=== PATIENT | female | born 1930 | race Caucasian/White ===

== ENCOUNTER 2018-02-17 01:46 | Inpatient (IN) | payer OTHER, MEDICARE ==
[~2018-02-17] VITALS: Ht 170.2 cm; Wt 68.5 kg
[2018-02-17 02:00] VITALS: BP_SYST 141
[2018-02-17] MEDS ORDERED: PRO20 PO (02:29)
[2018-02-17] MEDS ORDERED: FENO145T PO (02:29)
[2018-02-17] MEDS ORDERED: PRO40 PO (02:30)
[2018-02-17] MEDS ORDERED: IPRATROPIUM BROM 0.5 MG/2.5 ML VIAL.NEB (ATROVENT) IH ONE (02:30)
[2018-02-17] MEDS ORDERED: KETOROLAC TROMETHAMINE 60 MG/2 ML VIAL IM ONE (02:30)
[2018-02-17] MEDS ORDERED: ALBUTEROL SULFATE 0.083% 2.5 MG/3 ML VIAL.NEB IH ONE (02:30)
[2018-02-17] MEDS ORDERED: LORA-258 PO (02:31)
[2018-02-17] MEDS ORDERED: METO25TA3 PO (02:33)
[2018-02-17] MEDS ORDERED: ELUX75TA PO (02:34)
[2018-02-17] MEDS ORDERED: DONE5TAB33 PO (02:34)
[2018-02-17] MEDS ORDERED: HYDR-3917 PO (02:38)
[2018-02-17] MEDS ORDERED: LAM25 PO (02:39)
[2018-02-17] MEDS ORDERED: MEMA5TAB PO ×2 (02:40→02:41)
[2018-02-17] MEDS ORDERED: ASPI-1155 PO (03:00)
[2018-02-17] MEDS ORDERED: MAGN250T10 PO (03:03)
[2018-02-17] MEDS ORDERED: CA C-2 PO (03:04)
[2018-02-17] MEDS ORDERED: IBUP-2101 PO (03:06)
[2018-02-17] MEDS ORDERED: UBID50TA3 PO (03:08)
[2018-02-17] MEDS ORDERED: B CO1TAB7 PO (03:09)
[2018-02-17] MEDS ORDERED: cefTRIAXone 1 GM IVPB PREMIX 50 ML IV ONE (04:15)
[2018-02-17 04:55] LABS: ANION GAP 7 (5-15); CALCIUM 9.5 mg/dL (8.4-11.0); CHLORIDE 102 mmol/L (98-107); CREATININE 0.89 mg/dL (0.55-1.30); GLUCOSE 113 mg/dL (70-99); POTASSIUM 3.8 mmol/L (3.5-5.1); SODIUM SERUM 139 mmol/L (136-145); UREA NITROGEN, BLOOD 22 mg/dL (8-21)
[2018-02-17 04:59] LABS: HEMATOCRIT 35.1 % (36-48); HEMOGLOBIN 11.8 g/dL (12.0-16.0); MEAN CORPUSCULAR HEMOGLOBIN 31 pg (27-31); MEAN CORPUSCULAR HGB CONC 34 % (32-36); MEAN CORPUSCULAR VOLUME 93 fL (79.0-98.0); PLATELET COUNT (AUTO) 320 K/uL (130-430); RED BLOOD CELL COUNT(AUTO) 3.79 MIL/uL (4.2-6.2); RED CELL DISTRIBUTION WIDTH 13.1 % (9.0-15.0); WHITE BLOOD COUNT (AUTO) 14.8 K/uL (4.8-10.8)
[2018-02-17 05:00] LABS: ALANINE AMINOTRANSFERASE 32 U/L (12-78); ALBUMIN 3.3 g/dL (3.4-4.8); ASPARTATE AMINOTRANSFERASE 34 U/L (10-37); PROTHROMBIN TIME 10.5 SECS (9.5-12.5); TOTAL BILIRUBIN 0.5 mg/dL (0.0-1.0)
[2018-02-17 05:42] LABS: BAND % (MANUAL) 2 % (0-6); BASOPHILS % (MANUAL) 0 % (0-2); EOSINOPHILS % (MANUAL) 3 % (0-7); LYMPHOCYTES % (MANUAL) 15 % (20-46); MONOCYTES % (MANUAL) 8 % (0-11)
[2018-02-17 05:46] LABS: BILIRUBIN,URINE NEGATIVE (NEGATIVE); BLOOD, URINE 1+ (NEGATIVE); CLARITY/URINE CLEAR (CLEAR); COLOR,URINE YELLOW (YELLOW); GLUCOSE,URINE NEGATIVE (NEGATIVE); KETONES,URINE NEGATIVE (NEGATIVE); LEUKOCYTE ESTERASE ,URINE NEGATIVE (NEGATIVE); NITRITE, URINE NEGATIVE (NEGATIVE); PROTEIN URINE NEGATIVE (NEGATIVE); UROBILINOGEN,URINE 0.2 (0.2-1.0)
[2018-02-17 05:51] LABS: BACTERIA,URINE FEW /HPF (None Seen); MUCUS,URINE None Seen /LPF (None Seen); WBC,URINE 0-3 /HPF (0-3)
[2018-02-17 06:28] VITALS: BP_SYST 145
[2018-02-17] MEDS: IPRATROPIUM/ALBUTEROL SULFATE 3 ML AMPUL.NEB INH SCH ×5 (07:00→22:58)
[2018-02-17 07:29] VITALS: BP_SYST 145
[2018-02-17 11:59] VITALS: BP_SYST 135
[2018-02-17 15:00] VITALS: BP_SYST 132
[2018-02-17] MEDS ORDERED: [UNRECOGNIZED DRUG - OTHER] PO PRN (17:15)
[2018-02-17] MEDS ORDERED: HYDROCODONE PO PRN (17:15)
[2018-02-17] MEDS ORDERED: ACETAMINOPHEN PO PRN (17:15)
[2018-02-17] MEDS ORDERED: FLUoxetine HCL 20 MG CAPSULE (PROzac) PO ONE (17:30)
[2018-02-17] MEDS ORDERED: ASPIRIN 81 MG TAB.CHEW PO ONE (17:30)
[2018-02-17] MEDS ORDERED: PANTOPRAZOLE SODIUM 40 MG TAB PO ONE (17:30)
[2018-02-17] MEDS ORDERED: METOPROLOL SUCCINATE 25 MG TAB.SR.24H (TOPROL XL) PO ONE (17:45)
[2018-02-17] MEDS ORDERED: D5LR 500 ML IV ONE (18:15)
[2018-02-17] MEDS: LORazepam 1 MG TABLET PO SCH (18:36)
[2018-02-17] MEDS: MEMANTINE HCL 5 MG TABLET PO SCH (18:38)
[2018-02-17] MEDS: VITAMIN B COMPLEX WITH C TAB/CAP PO SCH (18:38)
[2018-02-17 19:51] VITALS: BP_SYST 156
[2018-02-17] MEDS ORDERED: ELUXADOLINE 75 MG PO SCH (21:00)
[2018-02-17] MEDS: LamoTRIgine 25 MG TABLET PO SCH (22:17)
[2018-02-17] MEDS: DONEPEZIL HCL 5 MG TABLET (ARICEPT) PO SCH (22:17)
[2018-02-18 00:47] VITALS: BP_SYST 164
[2018-02-18] MEDS: IPRATROPIUM/ALBUTEROL SULFATE 3 ML AMPUL.NEB INH SCH ×6 (03:00→23:36)
[2018-02-18 08:21] LABS: BASOPHILS % (AUTO) 0.4 % (0.0-2.0); EOSINOPHILS # (AUTO) 0.3 K/uL (0.0-0.4); EOSINOPHILS % (AUTO) 2.5 % (0.0-4.0); HEMATOCRIT 32.7 % (36-48); HEMOGLOBIN 10.6 g/dL (12.0-16.0); LYMPHOCYTES # (AUTO) 1.3 K/uL (1.0-5.5); LYMPHOCYTES % (AUTO) 12.9 % (20.5-51.5); MEAN CORPUSCULAR HEMOGLOBIN 30 pg (27-31); MEAN CORPUSCULAR HGB CONC 33 % (32-36); MEAN CORPUSCULAR VOLUME 92 fL (79.0-98.0); MONOCYTES # (AUTO) 0.9 K/uL (0.0-1.0); MONOCYTES % (AUTO) 8.9 % (1.7-9.3); NEUTROPHILS # (AUTO) 7.6 K/uL (1.8-7.7); NEUTROPHILS % (AUTO) 75.3 % (40.0-70.0); PLATELET COUNT (AUTO) 275 K/uL (130-430); RED BLOOD CELL COUNT(AUTO) 3.56 MIL/uL (4.2-6.2); RED CELL DISTRIBUTION WIDTH 12.9 % (9.0-15.0); WHITE BLOOD COUNT (AUTO) 10.1 K/uL (4.8-10.8)
[2018-02-18] MEDS: ASPIRIN 81 MG TAB.CHEW PO SCH (08:22)
[2018-02-18] MEDS: FLUoxetine HCL 20 MG CAPSULE (PROzac) PO SCH (08:22)
[2018-02-18] MEDS: PANTOPRAZOLE SODIUM 40 MG TAB PO SCH (08:22)
[2018-02-18] MEDS: MAGNESIUM OXIDE 400 MG TABLET PO SCH (08:22)
[2018-02-18] MEDS: CALCIUM CARBONATE/VITAMIN D3 1 TAB TABLET PO SCH (08:23)
[2018-02-18] MEDS: LamoTRIgine 25 MG TABLET PO SCH ×2 (08:23→20:37)
[2018-02-18] MEDS: VITAMIN B COMPLEX WITH C TAB/CAP PO SCH (08:23)
[2018-02-18] MEDS: METOPROLOL SUCCINATE 25 MG TAB.SR.24H (TOPROL XL) PO SCH (08:23)
[2018-02-18] MEDS: FENOFIBRATE NANOCRYSTALLIZED 48 MG TABLET (TRICOR) PO SCH (08:23)
[2018-02-18 08:24] LABS: ANION GAP 8 (5-15); CALCIUM 8.8 mg/dL (8.4-11.0); CHLORIDE 101 mmol/L (98-107); CREATININE 0.67 mg/dL (0.55-1.30); GLUCOSE 112 mg/dL (70-99); POTASSIUM 3.7 mmol/L (3.5-5.1); SODIUM SERUM 138 mmol/L (136-145); UREA NITROGEN, BLOOD 18 mg/dL (8-21)
[2018-02-18 08:30] VITALS: BP_SYST 146
[2018-02-18 12:00] VITALS: BP_SYST 140
[2018-02-18 16:12] VITALS: BP_SYST 146
[2018-02-18] MEDS ORDERED: THIAMINE HCL 100 MG in NS 50 ML IV ONE (17:30)
[2018-02-18] MEDS ORDERED: LORazepam 2 MG/ML VIAL IVP ONE (17:30)
[2018-02-18] MEDS ORDERED: ONDANSETRON HCL 4 MG/2 ML VIAL IVP PRN (17:30)
[2018-02-18] MEDS: MEMANTINE HCL 5 MG TABLET PO SCH (17:41)
[2018-02-18] MEDS: LORazepam 1 MG TABLET PO SCH (17:41)
[2018-02-18] MEDS: MORPHINE 4 MG/ML INJ. SYRINGE IVP PRN (17:42)
[2018-02-18 20:10] VITALS: BP_SYST 132
[2018-02-18] MEDS: DONEPEZIL HCL 5 MG TABLET (ARICEPT) PO SCH (20:37)
[2018-02-18 23:25] VITALS: BP_SYST 143
[2018-02-19] MEDS: IPRATROPIUM/ALBUTEROL SULFATE 3 ML AMPUL.NEB INH SCH ×6 (03:00→22:40)
[2018-02-19 08:12] VITALS: BP_SYST 133
[2018-02-19] MEDS: VITAMIN B COMPLEX WITH C TAB/CAP PO SCH (09:00)
[2018-02-19] MEDS: LamoTRIgine 25 MG TABLET PO SCH ×2 (09:05→21:11)
[2018-02-19] MEDS: CALCIUM CARBONATE/VITAMIN D3 1 TAB TABLET PO SCH (09:06)
[2018-02-19] MEDS: FENOFIBRATE NANOCRYSTALLIZED 48 MG TABLET (TRICOR) PO SCH (09:06)
[2018-02-19] MEDS: PANTOPRAZOLE SODIUM 40 MG TAB PO SCH (09:07)
[2018-02-19] MEDS: FOLIC ACID 1 MG TABLET PO SCH (09:07)
[2018-02-19] MEDS: ASPIRIN 81 MG TAB.CHEW PO SCH (09:08)
[2018-02-19] MEDS: MAGNESIUM OXIDE 400 MG TABLET PO SCH (09:08)
[2018-02-19] MEDS: THIAMINE HCL 100 MG TABLET PO SCH (09:08)
[2018-02-19] MEDS: METOPROLOL SUCCINATE 25 MG TAB.SR.24H (TOPROL XL) PO SCH (09:08)
[2018-02-19] MEDS: FLUoxetine HCL 20 MG CAPSULE (PROzac) PO SCH (09:08)
[2018-02-19] MEDS: MORPHINE 4 MG/ML INJ. SYRINGE IVP PRN ×2 (09:58→15:07)
[2018-02-19] MEDS ORDERED: MORPHINE 4 MG/ML INJ. SYRINGE IVP ONE (12:00)
[2018-02-19 12:06] VITALS: BP_SYST 124
[2018-02-19 16:52] VITALS: BP_SYST 109
[2018-02-19] MEDS: MEMANTINE HCL 5 MG TABLET PO SCH (18:31)
[2018-02-19] MEDS: LORazepam 1 MG TABLET PO SCH (18:31)
[2018-02-19 19:50] VITALS: BP_SYST 124
[2018-02-19] MEDS: DONEPEZIL HCL 5 MG TABLET (ARICEPT) PO SCH (21:11)
[2018-02-19] MEDS: MORPHINE 2 MG/ML INJ. SYRINGE IVP PRN (21:45)
[2018-02-20 00:06] VITALS: BP_SYST 122
[2018-02-20] MEDS: IPRATROPIUM/ALBUTEROL SULFATE 3 ML AMPUL.NEB INH SCH ×5 (02:01→23:58)
[2018-02-20 08:00] VITALS: BP_SYST 116
[2018-02-20] MEDS: FOLIC ACID 1 MG TABLET PO SCH (08:51)
[2018-02-20] MEDS: ASPIRIN 81 MG TAB.CHEW PO SCH (08:51)
[2018-02-20] MEDS: FENOFIBRATE NANOCRYSTALLIZED 48 MG TABLET (TRICOR) PO SCH (08:51)
[2018-02-20] MEDS: FLUoxetine HCL 20 MG CAPSULE (PROzac) PO SCH (08:51)
[2018-02-20] MEDS: MAGNESIUM OXIDE 400 MG TABLET PO SCH (08:51)
[2018-02-20] MEDS: PANTOPRAZOLE SODIUM 40 MG TAB PO SCH (08:51)
[2018-02-20] MEDS: CALCIUM CARBONATE/VITAMIN D3 1 TAB TABLET PO SCH (08:52)
[2018-02-20] MEDS: LamoTRIgine 25 MG TABLET PO SCH ×2 (08:52→21:26)
[2018-02-20] MEDS: THIAMINE HCL 100 MG TABLET PO SCH (08:52)
[2018-02-20] MEDS: METOPROLOL SUCCINATE 25 MG TAB.SR.24H (TOPROL XL) PO SCH (08:52)
[2018-02-20] MEDS: VITAMIN B COMPLEX WITH C TAB/CAP PO SCH (08:53)
[2018-02-20] MEDS: MORPHINE 4 MG/ML INJ. SYRINGE IVP PRN (11:36)
[2018-02-20 12:31] VITALS: BP_SYST 129
[2018-02-20 16:36] VITALS: BP_SYST 121
[2018-02-20] MEDS: LORazepam 1 MG TABLET PO SCH (17:57)
[2018-02-20] MEDS: MEMANTINE HCL 5 MG TABLET PO SCH (17:57)
[2018-02-20 19:40] VITALS: BP_SYST 124
[2018-02-20] MEDS: DONEPEZIL HCL 5 MG TABLET (ARICEPT) PO SCH (21:26)
[2018-02-21 00:20] VITALS: BP_SYST 140
[2018-02-21] MEDS: IPRATROPIUM/ALBUTEROL SULFATE 3 ML AMPUL.NEB INH SCH ×4 (03:28→15:20)
[2018-02-21 08:05] VITALS: BP_SYST 134
[2018-02-21] MEDS: FLUoxetine HCL 20 MG CAPSULE (PROzac) PO SCH (09:00)
[2018-02-21] MEDS: MAGNESIUM OXIDE 400 MG TABLET PO SCH (09:01)
[2018-02-21] MEDS: CALCIUM CARBONATE/VITAMIN D3 1 TAB TABLET PO SCH (09:01)
[2018-02-21] MEDS: THIAMINE HCL 100 MG TABLET PO SCH (09:01)
[2018-02-21] MEDS: FENOFIBRATE NANOCRYSTALLIZED 48 MG TABLET (TRICOR) PO SCH (09:01)
[2018-02-21] MEDS: PANTOPRAZOLE SODIUM 40 MG TAB PO SCH (09:01)
[2018-02-21] MEDS: ASPIRIN 81 MG TAB.CHEW PO SCH (09:01)
[2018-02-21] MEDS: LamoTRIgine 25 MG TABLET PO SCH (09:01)
[2018-02-21] MEDS: FOLIC ACID 1 MG TABLET PO SCH (09:01)
[2018-02-21] MEDS: VITAMIN B COMPLEX WITH C TAB/CAP PO SCH (09:02)
[2018-02-21] MEDS: METOPROLOL SUCCINATE 25 MG TAB.SR.24H (TOPROL XL) PO SCH (09:03)
[2018-02-21 12:09] VITALS: BP_SYST 142
[2018-02-21] MEDS ORDERED: THIA100T13 PO (13:42)
[2018-02-21] MEDS ORDERED: FOLI-43 PO (13:42)
[2018-02-21 15:04] LABS: BASOPHILS # (AUTO) 0.1 K/uL (0.0-0.2); BASOPHILS % (AUTO) 1.5 % (0.0-2.0); EOSINOPHILS # (AUTO) 0.3 K/uL (0.0-0.4); EOSINOPHILS % (AUTO) 3.8 % (0.0-4.0); HEMATOCRIT 30.6 % (36-48); HEMOGLOBIN 9.9 g/dL (12.0-16.0); LYMPHOCYTES # (AUTO) 1.3 K/uL (1.0-5.5); LYMPHOCYTES % (AUTO) 16.1 % (20.5-51.5); MEAN CORPUSCULAR HEMOGLOBIN 30 pg (27-31); MEAN CORPUSCULAR HGB CONC 33 % (32-36); MEAN CORPUSCULAR VOLUME 92 fL (79.0-98.0); MONOCYTES # (AUTO) 1.1 K/uL (0.0-1.0); NEUTROPHILS # (AUTO) 5.6 K/uL (1.8-7.7); NEUTROPHILS % (AUTO) 65.6 % (40.0-70.0); PLATELET COUNT (AUTO) 345 K/uL (130-430); RED BLOOD CELL COUNT(AUTO) 3.33 MIL/uL (4.2-6.2); RED CELL DISTRIBUTION WIDTH 12.6 % (9.0-15.0); WHITE BLOOD COUNT (AUTO) 8.4 K/uL (4.8-10.8)
[2018-02-21 15:10] LABS: CALCIUM 8.7 mg/dL (8.4-11.0); CHLORIDE 98 mmol/L (98-107); CREATININE 0.67 mg/dL (0.55-1.30); GLUCOSE 104 mg/dL (70-99); POTASSIUM 3.9 mmol/L (3.5-5.1); SODIUM SERUM 132 mmol/L (136-145); UREA NITROGEN, BLOOD 20 mg/dL (8-21)
[2018-02-21 15:11] LABS: ANION GAP < 3 (5-15)
[2018-02-21 16:24] VITALS: BP_SYST 149
[2018-02-21] MEDS: MORPHINE 2 MG/ML INJ. SYRINGE IVP PRN (16:41)
[2018-02-21] MEDS: MEMANTINE HCL 5 MG TABLET PO SCH (18:02)
[2018-02-21] MEDS: LORazepam 1 MG TABLET PO SCH (18:03)
[2018-02-21 18:11] VITALS: BP_SYST 149
== END 2018-02-21 18:55 | DRG 551 ==
LOC: EDBD 01:46 → SED 01:46 → STU 05:35 → SMU 02-20 22:22
PROVIDERS: ADMIT Internal Medicine; ATTEND Internal Medicine
DX: M54.5 Low back pain (principal); G93.41 Metabolic encephalopathy; S32.019A Unspecified fracture of first lumbar vertebra, initial encounter for closed fracture; S22.089A Unspecified fracture of T11-T12 vertebra, initial encounter for closed fracture; E44.1 Mild protein-calorie malnutrition; S32.029A Unspecified fracture of second lumbar vertebra, initial encounter for closed fracture; E86.0 Dehydration; E78.5 Hyperlipidemia, unspecified; I10 Essential (primary) hypertension; M19.90 Unspecified osteoarthritis, unspecified site; F03.90 Unspecified dementia, unspecified severity, without behavioral disturbance, psychotic disturbance, mood disturbance, and anxiety; R09.02 Hypoxemia; G89.4 Chronic pain syndrome; M81.0 Age-related osteoporosis without current pathological fracture; F10.20 Alcohol dependence, uncomplicated; W18.39XA Other fall on same level, initial encounter; Y93.89 Activity, other specified; Y92.89 Other specified places as the place of occurrence of the external cause; Y99.8 Other external cause status; Z68.23 Body mass index [BMI] 23.0-23.9, adult; Z79.899 Other long term (current) drug therapy; Z79.82 Long term (current) use of aspirin
CPT/HCPCS: 36415; 71045; 72100-TC; 72170-TC; 80048; 80053; 81000-TC; 83605; 84484; 85007; 85025; 85027; 85610-TC; 85730-TC; 87040-TC; 87086; 92610-GN; 93005; 94640; 94760; 96365; 96372; 97110-GP; 97530-GP; 99285; J0696; J1885; J2270; J3411; J7120; J7613; J7620